=== PATIENT | female | born 1985 | race Caucasian/White ===

== ENCOUNTER 2016-12-19 20:55 | Emergency (ER) | payer MEDICAID ==
[2016-12-19] MEDS ORDERED: Sodium Chloride 0.9% 1,000 ML IV SCH (21:15)
--- NOTE | 2016-12-19 21:16 | ED Physician Chart ---
Chief Complaint/HPI - Patient Information Date Seen:: 12/19/16 Time Seen:: 21:10 Chief Complaint:: altered mental status, sleeping on the bus History of Present Illness:: location: general quality: altered mental status severity: moderate duration: few hours (unknown duration) context: pt was found sleeping in the back of a public bus by the business management manager. no pain complaint. business management manager called 911, medics arriving on scene report that the patient walked out of the bus without assistance when asked to depart the bus and then lay down on the ground and waited for the medics to get her. medics report stable vital signs during transport. on arrival, pt is waking up, begins to speak full sentences, asks for boyfriend. gives name and date of to nurses on initial assessment. initial BP 96/60. pt reports no pain complaint. pt rolls onto right side and has emesis x 1. no chest pain, no abdominal pain complaint. mod factors: none assoc s/s: none hx from medics Historian:: EMS Review:: Nurse's Note Reviewed, EMS run form Reviewed Review of Systems - Review of Systems General/Constitutional: No fever Skin: No rash Neck: No stiffness Cardio Vascular: No edema Pulmonary: No cough, No wheezing GI: Vomiting (emesis x 1, undigested food products) Allergic/Immuno: No angioedema Neurological: No seizure Past Medical History - Past Medical History Past Medical History: No significant medical hx Family History: None Social History: Smoker, Alcohol, Illicit Drug Use, Single Surgical History: None Psychiatricy History: None Medication: None Family Medical History - Family Member Mother History Unknown: Yes Physical Exam - Physical Examination General/Constitutional: Awake (initially mildly somnolent but spontaneously arouses and speaks full sentences asking for boyfriend. ), Well-developed, well- nourished, Alert, No distress, GCS 15 (initial score GCS 14), Non-toxic appearing, Ambulatory Head: Atraumatic Eyes: Lids, conjuctiva normal, PERRL Skin: Nl inspection, Well hydrated, No lymphadenopathy ENMT: External ears, nose nl, Oropharynx nl Neck: Nontender, No nuchal rigidity Respiratory: Nl effort/Exclusion, Clear to Auscultation, No Wheeze/Rhonchi/ Rales (scant crackles right lower lobe) Cardio Vascular: RRR, No murmur, gallop, rubs, NL S1 S2 GI: No tenderness/rebounding/guarding, Normal BS's, No McBurney tenderness : No CVA tenderness Extremities: No tenderness or effusion, normal strength in all extremities, No edema, Normal digits & nails Neuro/Psych: Normal sensory exam Misc: Normal back, No paraspinal tenderness Labs/Radiology/EKG Results - Lab Results Results: Laboratory Tests 12/19/16 21:03 POC Glucose 95 Laboratory Tests 12/19/16 12/19/16 12/19/16 21:03 21:20 21:20 WBC RBC Hgb Hct MCV MCH MCHC Differential RDW Plt Count MPV Neutrophils % Lymphocytes % Monocytes % Eosinophils % Basophils % Sodium Potassium Chloride Carbon Dioxide Anion Gap BUN Creatinine Est GFR ( Amer) Est GFR (Non-Af Amer) BUN/Creatinine Ratio Glucose POC Glucose 95 Whole Bld Lactic Acid Calcium Total Bilirubin AST ALT Alkaline Phosphatase Total Protein Albumin Globulin Albumin/Globulin Ratio Urine Source [place] Urine Color YELLOW Urine Clarity CLEAR Urine pH 5.0 Ur Specific [place] 1.020 Urine Protein NEGATIVE Urine Glucose (UA) NEGATIVE Urine Ketones NEGATIVE Urine Blood NEGATIVE Urine Nitrate NEGATIVE Urine Bilirubin NEGATIVE Urine Urobilinogen 0.2 Ur Leukocyte Esterase NEGATIVE Urine RBC NONE SEEN Urine WBC NONE SEEN Ur Epithelial Cells NONE SEEN Urine Bacteria NONE SEEN Urine Test Salicylates Urine Opiates Screen NEGATIVE Urine Methadone Screen NEGATIVE Acetaminophen Ur Barbiturates Screen NEGATIVE Ur Tricyclics Screen NEGATIVE Ur Phencyclidine Scrn NEGATIVE Amphetamines Screen NEGATIVE U Methamphetamines Scrn NEGATIVE U Benzodiazepines Scrn NEGATIVE U Cocaine Metab Screen NEGATIVE U Cannabinoids Screen NEGATIVE Ethyl Alcohol 12/19/16 12/19/16 12/19/16 21:20 21:30 21:30 WBC 7.2 RBC 4.66 Hgb 14.1 Hct 41.5 MCV 89.0 MCH 30.2 MCHC Differential 33.9 RDW 12.7 Plt Count 340 MPV 7.6 Neutrophils % 57.0 Lymphocytes % 36.7 Monocytes % 3.8 Eosinophils % 1.4 Basophils % 1.1 Sodium Potassium Chloride Carbon Dioxide Anion Gap BUN Creatinine Est GFR ( Amer) Est GFR (Non-Af Amer) BUN/Creatinine Ratio Glucose POC Glucose Whole Bld Lactic Acid 2.18 H* Calcium Total Bilirubin AST ALT Alkaline Phosphatase Total Protein Albumin Globulin Albumin/Globulin Ratio Urine Source Urine Color Urine Clarity Urine pH Ur Specific [place] Urine Protein Urine Glucose (UA) Urine Ketones Urine Blood Urine Nitrate Urine Bilirubin Urine Urobilinogen Ur Leukocyte Esterase Urine RBC Urine WBC Ur Epithelial Cells Urine Bacteria Urine Test NEGATIVE Salicylates Urine Opiates Screen Urine Methadone Screen Acetaminophen Ur Barbiturates Screen Ur Tricyclics Screen Ur Phencyclidine Scrn Amphetamines Screen U Methamphetamines Scrn U Benzodiazepines Scrn U Cocaine Metab Screen U Cannabinoids Screen Ethyl Alcohol 12/19/16 21:30 WBC RBC Hgb Hct MCV MCH MCHC Differential RDW Plt Count MPV Neutrophils % Lymphocytes % Monocytes % Eosinophils % Basophils % Sodium 139 Potassium 2.9 L* Chloride 106 Carbon Dioxide 23.6 Anion Gap 12.3 BUN 12 Creatinine 0.8 Est GFR ( Amer) > 60.0 Est GFR (Non-Af Amer) > 60.0 BUN/Creatinine Ratio 15.0 Glucose 107 H POC Glucose Whole Bld Lactic Acid Calcium 9.4 Total Bilirubin 0.4 AST 15 ALT 12 Alkaline Phosphatase 45 Total Protein 8.0 Albumin 4.6 Globulin 3.4 Albumin/Globulin Ratio 1.4 Urine Source Urine Color Urine Clarity Urine pH Ur Specific [place] Urine Protein Urine Glucose (UA) Urine Ketones Urine Blood Urine Nitrate Urine Bilirubin Urine Urobilinogen Ur Leukocyte Esterase Urine RBC Urine WBC Ur Epithelial Cells Urine Bacteria Urine Test Salicylates < 25.0 L Urine Opiates Screen Urine Methadone Screen Acetaminophen < 10.0 L Ur Barbiturates Screen Ur Tricyclics Screen Ur Phencyclidine Scrn Amphetamines Screen U Methamphetamines Scrn U Benzodiazepines Scrn U Cocaine Metab Screen U Cannabinoids Screen Ethyl Alcohol 331 H - EKG Interpretations Comments:: EKG NSR 68 prolonged MA interval no acute ST elevation no acute ST depression normal axis abnormal EKG pt with no chest pain or shortness of breath ER READ Assessment - Assessment General Assessment: pt stable while in ER, spontaneously improving neuro status to normal baseline. ED Septic Shock - . Is Septic Shock (SBP<90, OR Lactate>4 mmol\L) present?: No Reassessment (Disposition) - Reassessment Reassessment:: pt spontaneously improves while in ER spontaneously, KCL 20 meq PO administered in ER Reassessment Condition:: Improved - Diagnosis Diagnosis:: Alcohol intoxication, improved - Aftercare/Follow up Instructions Aftercare/Follow-Up Instructions:: Refer to Discharge Instructions Notes:: go to clinic for recheck tomorrow or as needed. - Patient Disposition Discharge/Transfer:: Home Condition at Disposition:: Stable, Improved
[2016-12-19 21:38] LABS: % BASOPHILS 1.1 % (0.0-2.0); % EOSINOPHILS 1.4 % (0.0-5.0); % LYMPHOCYTES 36.7 % (20.0-50.0); % MONOCYTES 3.8 % (2.0-10.0); HEMATOCRIT 41.5 % (35.0-45.0); HEMOGLOBIN 14.1 gm/dL (11.7-15.5); MEAN CORPUSCULAR HEMOGLOBIN 30.2 pg (27.0-31.0); MEAN CORPUSCULAR HGB CONC 33.9 pg (28.0-36.0); MEAN PLATELET VOLUME 7.6 fl; NEUTROPHILE ABSOLUTE 4.1 Th/cmm (1.8-8.0); PLATELET COUNT 340 Th/cmm (150-400); RED BLOOD COUNT 4.66 Mil/cmm (3.80-5.10); RED CELL DISTRIBUTION WIDTH 12.7 % (11.5-20.0); WHITE BLOOD COUNT 7.2 Th/cmm (4.8-10.8)
[2016-12-19 21:52] LABS: ACETAMINOPHEN < 10.0 ug/mL (10.0-30.0); ALB/GLOB RATIO 1.4 (1.0-1.8); ALKALINE PHOSPHATASE 45 U/L (34-104); ANION GAP 12.3 (7.0-16.0); BILIRUBIN,TOTAL 0.4 mg/dL (0.3-1.0); BUN - UREA NITROGEN 12 mg/dL (7-25); CALCIUM SERUM 9.4 mg/dL (8.6-10.3); CARBON DIOXIDE 23.6 mEq/L (21.0-31.0); CHLORIDE 106 mEq/L (98-107); CREATININE - SERUM 0.8 mg/dL (0.6-1.2); GLUCOSE 107 mg/dL (70-105); SGOT 15 U/L (13-39); SGPT/ALT 12 U/L (7-52); SODIUM SERUM 139 mEq/L (136-145)
[2016-12-19 22:01] LABS: POTASSIUM SERUM 2.9 mEq/L (3.5-5.1)
[2016-12-19 22:07] LABS: AMPHETAMINE URINE NEGATIVE (NEGATIVE); BARBITURATES URINE NEGATIVE (NEGATIVE); METHADONE URINE NEGATIVE (NEGATIVE)
[2016-12-19 22:16] LABS: URINE BILIRUBIN NEGATIVE (NEGATIVE); URINE BLOOD NEGATIVE (NEGATIVE); URINE COLOR YELLOW; URINE EPITHELIAL CELLS NONE SEEN /lpf (FEW); URINE GLUCOSE (UA) NEGATIVE (NEGATIVE); URINE KETONE NEGATIVE (NEGATIVE); URINE PROTEIN NEGATIVE (NEGATIVE); URINE RBC NONE SEEN /hpf (0-5); URINE UROBILINOGEN 0.2 E.U./dL (0.2 - 1.0); URINE WBC NONE SEEN /hpf (0-5)
[2016-12-19 22:17] LABS: URINE BACTERIA NONE SEEN /hpf (NONE SEEN)
[2016-12-19] MEDS ORDERED: Potassium Chloride 20 mEq ER Tab PO ONE (22:50)
[2016-12-20] MEDS ORDERED: Potassium Chloride 20 mEq ER Tab PO ONE (00:46)
--- NOTE | 2016-12-20 09:26 | Diagnostic Imaging Report ---
Portable chest x-ray History: Cough Allowing for portable technique the heart size is normal. No focal pulmonary parenchymal processes. No hilar or mediastinal abnormalities. Impression: No acute abnormalities.
== END 2016-12-20 01:10 | disposition home or self-care (01) ==
LOC: ER 20:55
DX: F10.129 Alcohol abuse with intoxication, unspecified (principal); F17.200 Nicotine dependence, unspecified, uncomplicated
CPT/HCPCS: 36415-UA; 71010-TC; 80053-TC; 80320-TC; 80329-TC; 81001-TC; 81025-TC; 82948-90; 83605; 85025-TC; 93005; J7030; Z7610